=== PATIENT | female | born 1965 ===

== ENCOUNTER 2024-11-13 06:00 | Day surgery (SDC) | payer OTHER ==
[2024-11-10 11:02] LABS: BASO % 0.2 % (0.1-1.2); EOS # 0.14 (0.04-0.54); EOS % 0.7 % (0.7-7.0); HEMATOCRIT 33.3 % (34.1-44.9); LYMPH # 3.17 (1.18-3.74); LYMPH % 15.7 % (19.3-53.1); MEAN CORPUSCULAR HEMOGLOBIN 28.4 pg (25.6-32.2); MONO # 1.18 (0.24-0.82); MONO % 5.9 % (4.7-12.5); PLATELET COUNT 375 K/uL (163-369); RED BLOOD COUNT 3.88 M/uL (3.93-5.22); RED CELL DISTRIBUTION WIDTH 13.8 % (11.6-14.4)
[~2024-11-13 06:00] MED LIST: LOSARTAN-HCTZ1 EACH PO
[2024-11-13] MEDS ORDERED: CIPROFLOXACIN IN 5 % DEXTROSE 400 MG/200 ML PIGGYBAG IV ONE (07:31)
[2024-11-13] MEDS ORDERED: POVIDONE-IODINE 118 ML BOTT TOP ONE (09:37)
[2024-11-13] MEDS ORDERED: CHLORHEXIDINE GLUCONATE 120 ML BOTTLE TOP ONE (09:37)
== END 2024-11-13 14:55 | disposition home or self-care (01) ==
LOC: CIR.AMB 06:00
PROVIDERS: ATTEND Obstetrics & Gynecology
DX: N84.0 Polyp of corpus uteri (principal); N93.8 Other specified abnormal uterine and vaginal bleeding; Z88.0 Allergy status to penicillin; Z88.2 Allergy status to sulfonamides

== ENCOUNTER 2025-01-01 12:08 | Inpatient (IN) | payer OTHER ==
[~2025-01-01] VITALS: Ht 162.6 cm; Wt 113.4 kg
[2025-01-01 12:09] VITALS: BP 128/79
[2025-01-01 13:35] LABS: COVID-19 AG NEGATIVE (NEGATIVE)
[2025-01-01 14:21] LABS: RH POSITIVE
[2025-01-01 14:37] VITALS: BP 137/85
[2025-01-08] MEDS ORDERED: METRONIDAZOLE/SODIUM CHLORIDE 500 MG/100 ML PIGGYBACK IV ONE (13:45)
[2025-01-08] MEDS ORDERED: POVIDONE-IODINE 118 ML BOTT TOP ONE (13:45)
[2025-01-08] MEDS ORDERED: CLINDAMYCIN PHOSPHATE 150 MG/ML (600mg) IV ONE (13:45)
[2025-01-08] MEDS ORDERED: SUGAMMADEX SODIUM 200 MG/2 ML VIAL IV ONE (15:15)
[2025-01-08] MEDS ORDERED: THROMBIN,HU/FIBRINOGEN/CALCIUM 10 ML SYRINGE TOP ONE (15:30)
[2025-01-08] MEDS ORDERED: MORPHINE SULFATE 4 MG/ML CARTRIDGE IV PRN (15:45)
[2025-01-08] MEDS ORDERED: RINGERS SOLUTION,LACTATED 1,000 ML IV SCH (15:45)
[2025-01-08] MEDS ORDERED: MORPHINE SULFATE 4 MG/ML VIAL IV ONE ×2 (16:40→17:40)
[2025-01-08] MEDS ORDERED: GABAPENTIN 300 MG CAPSULE PO SCH (17:00)
[2025-01-08] MEDS ORDERED: METOCLOPRAMIDE HCL 5 MG/ML VIAL IV SCH (17:00)
[2025-01-08] MEDS ORDERED: SIMETHICONE 125 MG CAPSULE PO SCH (17:00)
[2025-01-08] MEDS ORDERED: METRONIDAZOLE/SODIUM CHLORIDE 500 MG/100 ML PIGGYBACK IV SCH (17:00)
[2025-01-08 17:59] LABS: BASO % 0.2 % (0.1-1.2); EOS # 0.02 (0.04-0.54); EOS % 0.1 % (0.7-7.0); LYMPH # 1.96 (1.18-3.74); LYMPH % 8.0 % (19.3-53.1); MEAN PLATELET VOLUME 11.00 fl (9.4-12.4); MONO # 0.94 (0.24-0.82); MONO % 3.8 % (4.7-12.5); NEUT # 21.34 (1.56-6.13); NEUT % 87.5 % (34.0-71.1); RED CELL DISTRIBUTION WIDTH 14.0 % (11.6-14.4)
[2025-01-08] MEDS ORDERED: KETOROLAC TROMETHAMINE 30 MG VIAL IM SCH (18:00)
[2025-01-08 18:29] LABS: BUN CREA RATIO 12.0 (7.0-25.0); CREATININE SERUM 0.89 mg/dL (0.55-1.02); GFR 64.48; GLUCOSE FASTING 141.0 mg/dL (65-100); OSMOLALITY SERUM 281.0 MOSM/KG (275-295)
[2025-01-08 19:55] VITALS: BP 137/85; O2SAT 92; O2SAT 98
[2025-01-08] MEDS ORDERED: FAMOTIDINE/PF 20 MG/2 ML VIAL IV PUSH SCH (21:00)
[2025-01-08] MEDS ORDERED: DOCUSATE SODIUM 100MG CAP PO SCH (21:00)
[2025-01-09 01:46] VITALS: BP 124/79; O2SAT 98
[2025-01-09 06:44] LABS: BASO % 0.1 % (0.1-1.2); EOS # 0.01 (0.04-0.54); EOS % 0.1 % (0.7-7.0); LYMPH # 1.66 (1.18-3.74); LYMPH % 9.9 % (19.3-53.1); MEAN PLATELET VOLUME 11.30 fl (9.4-12.4); MONO # 0.97 (0.24-0.82); MONO % 5.8 % (4.7-12.5); NEUT # 13.96 (1.56-6.13); NEUT % 83.7 % (34.0-71.1); RED CELL DISTRIBUTION WIDTH 13.9 % (11.6-14.4)
[2025-01-09] MEDS ORDERED: OxyCODONE HCL 5 MG TABLET (ROXICODONE) PO PRN (07:30)
[2025-01-09 07:39] LABS: BUN CREA RATIO 17.0 (7.0-25.0); CREATININE SERUM 0.81 mg/dL (0.55-1.02); GFR 71.88; GLUCOSE FASTING 114.0 mg/dL (65-100); OSMOLALITY SERUM 281.0 MOSM/KG (275-295)
[2025-01-09 08:00] VITALS: BP 125/78; O2SAT 94
[2025-01-09] MEDS ORDERED: ACETAMINOPHEN 500 MG GEL..CAP PO SCH (08:00)
[2025-01-09] MEDS ORDERED: LOSARTAN/HYDROCHLOROTHIAZIDE 1 UDTAB TABLET PO SCH (09:00)
[2025-01-09] MEDS ORDERED: ENOXAPARIN SODIUM 40 MG/0.4 ML SYRINGE SUBCUTANEO SCH (09:00)
[2025-01-09] MEDS ORDERED: CLINDAMYCIN PHOSPHATE 150 MG/ML (900mg) IV SCH (13:00)
[2025-01-09 13:04] VITALS: BP 120/77
[2025-01-09 13:22] VITALS: BP 120/77; O2SAT 96
[2025-01-09 16:00] VITALS: BP 140/80; O2SAT 96
[2025-01-09 18:17] LABS: BASO % 0.3 % (0.1-1.2); EOS # 0.00 (0.04-0.54); EOS % 0.0 % (0.7-7.0); LYMPH # 2.03 (1.18-3.74); LYMPH % 11.4 % (19.3-53.1); MEAN PLATELET VOLUME 12.10 fl (9.4-12.4); MONO # 1.22 (0.24-0.82); MONO % 6.9 % (4.7-12.5); NEUT # 14.41 (1.56-6.13); NEUT % 81.1 % (34.0-71.1); RED CELL DISTRIBUTION WIDTH 14.2 % (11.6-14.4)
[2025-01-10 00:20] VITALS: BP 105/69; O2SAT 94
[2025-01-10 08:00] VITALS: BP 160/80; O2SAT 96
[2025-01-10 08:20] LABS: BASO % 0.4 % (0.1-1.2); EOS # 0.12 (0.04-0.54); EOS % 0.9 % (0.7-7.0); LYMPH # 2.41 (1.18-3.74); LYMPH % 18.0 % (19.3-53.1); MEAN PLATELET VOLUME 10.60 fl (9.4-12.4); MONO # 1.05 (0.24-0.82); MONO % 7.8 % (4.7-12.5); NEUT # 9.70 (1.56-6.13); NEUT % 72.5 % (34.0-71.1); RED CELL DISTRIBUTION WIDTH 14.3 % (11.6-14.4)
== END 2025-01-10 10:30 | disposition home or self-care (01) | DRG 743 ==
LOC: O/R 01-08 12:02 → SURH 01-08 12:45 → OB/GYN 01-08 17:00 → SEC-K 01-08 19:32 → OB/GYN 01-08 19:33
PROVIDERS: ADMIT Obstetrics & Gynecology Gynecologic Oncology; ATTEND Obstetrics & Gynecology Gynecologic Oncology
PROC: 0UT70ZZ Resection of Bilateral Fallopian Tubes, Open Approach (ICD-10-PCS; 2025-01-08)
PROC: 07BC0ZZ Excision of Pelvis Lymphatic, Open Approach (ICD-10-PCS; 2025-01-08)
PROC: 0UT20ZZ Resection of Bilateral Ovaries, Open Approach (ICD-10-PCS; 2025-01-08)
PROC: 0DNW0ZZ Release Peritoneum, Open Approach (ICD-10-PCS; 2025-01-08)
PROC: 0DBU0ZZ Excision of Omentum, Open Approach (ICD-10-PCS; 2025-01-08)
PROC: 0TN70ZZ Release Left Ureter, Open Approach (ICD-10-PCS; 2025-01-08)
PROC: 0TN60ZZ Release Right Ureter, Open Approach (ICD-10-PCS; 2025-01-08)
PROC: 0UT90ZZ Resection of Uterus, Open Approach (ICD-10-PCS; principal; 2025-01-08 14:15)
DX: N80.03 Adenomyosis of the uterus (principal); D36.0 Benign neoplasm of lymph nodes; N84.0 Polyp of corpus uteri; N80.102 Endometriosis of left ovary, unspecified depth; D27.0 Benign neoplasm of right ovary; R93.5 Abnormal findings on diagnostic imaging of other abdominal regions, including retroperitoneum; N95.0 Postmenopausal bleeding